=== PATIENT | female | born 1985 | race Caucasian/White ===

== ENCOUNTER → 2022-03-29 11:18 | Outpatient (CLI) | payer SELFPAY ==
--- NOTE | ~2022-03-29 | CT_ITS ---
EXAMINATION: CT abdomen pelvis w con INDICATION: Abdominal and pelvic pain TECHNIQUE: Computed tomographic images of the abdomen and pelvis were obtained after the administrati on of 100 cc of Omnipaque 350 intravenous contrast. The dose-length product (DLP) was 660.53 mGy-cm. Automated exposure control and iterative reconstruction technique were employed. COMPARISON: None available FINDINGS: Minimal dependent atelectasis is present in the lung bases. The heart size is normal. The l iver, spleen, pancreas, gallbladder, and adrenal glands are normal. There is a [address] one of the left kidney upper pole. The right kidney is unremarkable. No pathologically enlarged abdom inal or pelvic lymph nodes are identified. There is no free intraperitoneal gas or evidence of bowel obstruction. The appendix is normal. There is a 3.3 cm cyst of the right adnexa. Scattered soft tissu e calcifications posteriorly in the buttocks likely reflect injection sites. IMPRESSION: 1. No CT correlate for the patient's symptoms. Reviewed, dictated and finalized at location B.
--- NOTE | ~2022-03-29 | CT_ITS ---
This report was recreated [05/11/2022]. Original report was signed by [Chu Steen M.D. ] on [ ]. EXAMINATION: CT abdomen pelvis w con INDICATION: Abdominal and pelvic pain TECHNIQUE: Computed tomographic images of the abdomen and pelvis were obtained after the administrati on of 100 cc of Omnipaque 350 intravenous contrast. The dose-length product (DLP) was 660.53 mGy-cm. Automated exposure control and iterative reconstruction technique were employed. COMPARISON: None available FINDINGS: Minimal dependent atelectasis is present in the lung bases. The heart size is normal. The l iver, spleen, pancreas, gallbladder, and adrenal glands are normal. There is a [address] one of the left kidney upper pole. The right kidney is unremarkable. No pathologically enlarged abdom inal or pelvic lymph nodes are identified. There is no free intraperitoneal gas or evidence of bowel obstruction. The appendix is normal. There is a 3.3 cm cyst of the right adnexa. Scattered soft tissu e calcifications posteriorly in the buttocks likely reflect injection sites. IMPRESSION: 1. No CT correlate for the patient's symptoms. Reviewed, dictated and finalized at location B. Dictated By: Chu Steen MD 03/29/22 1414 Signed By: <Electronically signed by Chu Steen MD in OV> Reviewed, dictated and finalized at location B.
== END ==
PROVIDERS: PCP Physician Assistant Medical; Visit Provider Physician Assistant Medical
DX: R10.9 Unspecified abdominal pain (principal)
CPT/HCPCS: 99199; 74177; Q9967

== ENCOUNTER 2022-10-02 00:44 | Day surgery (SDC) | payer BC, SELFPAY ==
[2022-09-19 14:14] VITALS: BMI 23.0
--- NOTE | 2022-09-19 14:19 | PC.NURSE ---
Report to the Outpatient Waiting Room, entrance under the green pavilion located off [facility], at time 0930 on date 10/02/22. Planned Procedure Time: 1130. Time changes happen often and if your time is changed the preop area will call you the afternoon before. - You and your visitor will be asked to self-screen and do not enter if you have any COVID symptoms. - Only one visitor is requested with a max of two and NO children visitors are allowed at this time. - The patient visitor may be requested to leave or wait in car when not with patient due to distancing restrictions. - A mask is REQUIRED within the hospital. Patients may have clear liquids (water, carbonated beverages, clear teas, apple juice) until 3 hours prior to surgery with a maximum of 20 ounces. - No food from midnight until time of surgery Take the following medications with a SIP of water the morning of surgery: TOPIRAMATE Medications to discontinue per physician: VITAMINS/SUPPLEMENTS Date to take last dose: 09/28/22 Please no make-up, nail american, hairspray, perfume, deodorant, or body powder the day of surgery. No jewelry (including any body piercings) or valuables the day of surgery, leave them at home. Please take a shower or bath the night before, or the morning of, surgery with an antibacterial soap. Wear comfortable, loose fitting clothing. - Jewelry must be removed prior to entering the operating room. Rings and piercings that are not removed may be cut off. - The hospital will not accept responsibility for valuables. - Please leave all valuables, including medications, at home the day of surgery. If you are going home after surgery, a licensed pedicab driver must drive you home. - NO public transportation without another adult if you receive anesthesia. - We recommend that an adult stay with you for 24 hours following discharge. - We also recommend that you do not drive, make important decision, drink alcoholic beverages, or take any drugs that were not prescribed by your health care provider for at least 24 hours after your discharge time. Follow any additional instructions given to you from your surgeon. If you or anyone in your household have experienced Covid symptoms in the past week, please notify your surgeon or the nurse liaison at the phone number below for possible testing. Telephone instructions given to PT - CHAPIN SHI and asked if any additional questions and then verbalized understanding. Patient advised to call surgeon office or pre surgery nurse liaison [phone] if any additional questions.
--- NOTE | 2022-10-01 11:28 | PM.IMHP ---
H&P: HPI History of Present Illness Date/Time: 10/01/22 11:28 Chief Complaint: cervical dysplasia Narrative: Deisy is a 36yo G0, who presents for scheduled surgery. She had an ASCUS/HPV + pap. Colpo was performed and showed CHEKO 2 at 3 o'clock Review of Systems Constitutional: Constitutional: Denies chills, Denies fever(s) and Denies headache(s) Eyes: Eyes: Denies change in vision ENT: Denies dizziness and Denies headache(s) Cardiovascular: Cardiovascular: Denies chest pain and Denies dyspnea Respiratory: Respiratory: Denies cough and Denies dyspnea Gastrointestinal: Gastrointestinal: Denies abdominal pain and Denies change in stool character Genitourinary: Genitourinary: Denies abnormal menses, Denies pelvic pain, Denies vaginal discharge, Denies vaginal odor and Denies vaginal pruritus Neurologic: Denies dizziness and Denies headache(s) Psychiatric: Psychiatric: Denies anxiety and Denies depression [facility] Past Medical History Medical History (Updated 10/01/22 @ 11:29 by Aaliyah Adrian MD) Encounter for colonoscopy in patient with family history of colon polyps Migraines Pap smear abnormality of vagina with ASC-US Social History Social History Smoking status: Never smoker Alcohol intake: current Drinks per week: 1 Alcohol use details: 2 TIMES/MONTH Substance use: never Substance use type: does not use Living arrangements: alone 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 Gender identity (if verbalized by the patient): Female Sexual Orientation (if Verbalized by the Patient): Straight or Heterosexual Spiritual care concerns: No Meds Home Medications and Allergies Home Medications Medication Instructions Recorded Confirmed Type norethindrone acetate 1 mg-ethinyl 1 tablet PO DAILY #63 tabs 05/31/22 09/19/22 Rx estradiol 20 mcg tablet (Microgestin) sumatriptan succinate 6 mg/0.5 mL 6 mg subcut ONCE 05/31/22 09/19/22 History subcutaneous needle-free injector amitriptyline 10 mg tablet 20 mg PO HS 09/19/22 09/19/22 History dicyclomine 20 mg tablet 20 mg PO QID PRN Abdominal 09/19/22 09/19/22 History Discomfort eletriptan 40 mg tablet 40 mg PO ONCE PRN Migraine Headache 09/19/22 09/19/22 History multivitamin 1 tablet PO DAILY 09/19/22 09/19/22 History topiramate 100 mg tablet 100 mg PO BID 09/19/22 09/19/22 History Allergies Allergy/AdvReac Type Severity Reaction Status Date / Time Sulfa (Sulfonamide Allergy Severe Flushing Verified 09/19/22 14:10 Antibiotics) venom-honey bee Allergy Severe Numbness Verified 09/19/22 14:10 Exam Const: General: cooperative, healthy appearing, comfortable and no acute distress Orientation/consciousness: patient oriented x3 Resp: Effort & Inspection: normal respiratory effort Cardio: Rate: regular rate GI: Inspection: normal to inspection GI Palp: No abdominal tenderness and Yes Soft to palpation : Other: deferred to OR Skin: General skin exam: normal color Neuro: General: patient oriented x3 Extrem: General: normal to inspection Psych: Appearance: grossly normal Affect: normal affect Attitude: cooperative Assessment and Plan Assessment and plan (1) CHEKO II (cervical intraepithelial neoplasia II): Code(s): N87.1 - Moderate cervical dysplasia Status: Acute Plan - Proceed with LEEP, ECC, and top hat - Risks and benefits explained in detail
--- NOTE | 2022-10-02 08:13 | WPDHPUPDATE1 ---
History and Physical Update Update Date/Time: 10/02/22 08:13 History and Physical has been reviewed, including an updated exam of the patient. There are NO changes in the patient's condition. Risks, benefits, and alternatives have been discussed and questions answered. Patient agrees to proceed with procedure.
--- NOTE | 2022-10-02 09:55 | WPDANESEPPF ---
Anes - Initial Pre Proc Eval Procedure: Operation Date: 10/02/22 11:30 Proposed Procedures p Loop Electrical Excision Procedure - Aaliyah Adrian MD Date/Time: 10/02/22 09:55 Surgeon: Aaliyah Adrian MD Pre Op Diagnosis: cervical dysplasia Patient Data Age: 36 Gender: F Height: 1.7 m Weight: 66.7 kg Allergies Allergy/AdvReac Type Severity Reaction Status Date / Time Sulfa (Sulfonamide Allergy Severe Flushing Verified 09/19/22 14:10 Antibiotics) venom-honey bee Allergy Severe Numbness Verified 09/19/22 14:10 Home Medications Medication Instructions Recorded Confirmed Type norethindrone acetate 1 mg-ethinyl 1 tablet PO DAILY #63 tabs 05/31/22 09/19/22 Rx estradiol 20 mcg tablet (Microgestin) sumatriptan succinate 6 mg/0.5 mL 6 mg subcut ONCE 05/31/22 09/19/22 History subcutaneous needle-free injector amitriptyline 10 mg tablet 20 mg PO HS 09/19/22 09/19/22 History dicyclomine 20 mg tablet 20 mg PO QID PRN Abdominal 09/19/22 09/19/22 History Discomfort eletriptan 40 mg tablet 40 mg PO ONCE PRN Migraine Headache 09/19/22 09/19/22 History multivitamin 1 tablet PO DAILY 09/19/22 09/19/22 History topiramate 100 mg tablet 100 mg PO BID 09/19/22 09/19/22 History Patient hx anesthesia problems: none Family hx anesthesia problems: none Results Review: All pre-operative results and documents have been reviewed as part of the pre-operative evaluation. 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 Gender identity (if verbalized by the patient): Female Sexual Orientation (if Verbalized by the Patient): Straight or Heterosexual Spiritual care concerns: No Anes - Eval Final PreProcedure Day of Procedure 10/02/22 09:55 Patient weight: normal Heart: regular rate and rhythm Lungs: clear to auscultation Airway: Mallampati scale class II Neurological: alert and oriented Last oral intake: >/= 8 hours ASA classification: I Emergent: no Anesthetic plan: proceed Anesthesia type and monitoring: general GIVS and standard monitoring Results Review: All pre-operative results and documents have been reviewed as part of the pre-operative evaluation. Informed Consent: The patient's anesthetic plan and its attendant risks and benefits were discussed with the patient/family/POA. Questions were solicited and answers provided to the satisfaction of the patient/family/POA.
[2022-10-02] MEDS: ACETAMINOPHEN 500 MG TABLET 1000 MG PO (10:20)
[2022-10-02] MEDS: LACTATED RINGERS 1,000 ML 30 ML IV CONT (10:20)
[2022-10-02 10:25] VITALS: BP 132/86; PULSE 85; RESP 14; TEMP 37.1; O2SAT 100
[2022-10-02] MEDS: BUPIVACAINE/EPINEPHRINE 0.5% 10 ML VIAL 30 ML INFILTRATE (11:04)
[2022-10-02] MEDS: KETOROLAC 30 MG/ML VIAL (*BKC) IV PUSH (11:06)
--- NOTE | 2022-10-02 11:22 | W.PM.PROC2 ---
Procedure Note - Detailed Date of Procedure 10/02/22 Pre-op Diagnosis cervical dysplasia Post-op Diagnosis Same Procedure Performed LEEP, top hat, ECC Surgeon Aaliyah Adrian MD Anesthesia MAC Findings No uptake circumferentially around cervical os. Good hemostasis at end of case. Description of Procedure Deisy was taken to the operating room where she was placed under MAC sedation without complications. She was then prepped and draped in the normal fashion in the dorsal lithotomy position with her legs in low Sanjay stirrups. A time-out was performed and no preoperative antibiotics were indicated. A coated speculum attached to suction was then placed within the vagina, where the cervix was easily identified. The cervix was then injected with 0.25% Marcaine with epinephrine (7cc were used). Lugol?s solution was then applied to the cervix. No uptake was noted as above. The LEEP was then obtained in a single swipe from the patient?s left to right. The LEEP was removed and a silk stitch was placed at 12:00 p.m. to orient the tissue for pathology. A top-hat was then obtained in the same manner. A silk stitch was also placed at 12:00 p.m. An ECC was then collected. The LEEP bed was then cauterized using the roller ball. Monsel?s solution was then placed in the LEEP bed. Good hemostasis was noted. Sponge, lap, instrument, and needle counts were correct at the end of the procedure. The patient was awoken from anesthesia and taken to recovery in a stable condition with plans of same-day discharge home. Estimated Blood Loss 5 Pathology Yes (Leep and top hate (each with stitch placed @ 12o'clock), ECC) Complications No immediate complications Condition Stable Disposition Same day [facility] Billing Surgery - Charge Forward: Surgery Billing
[2022-10-02 11:24] VITALS: BP 101/72; PULSE 89; RESP 16; O2SAT 100
[2022-10-02 11:50] VITALS: BP 108/72; PULSE 70; RESP 16; O2SAT 100
[2022-10-02 12:15] VITALS: BP 107/68; PULSE 65; RESP 14
== END 2022-10-02 12:25 | disposition home or self-care (01) ==
PROVIDERS: PCP Physician Assistant Medical; Visit Provider Obstetrics & Gynecology
PROC: 0UBC7ZZ Excision of Cervix, Via Natural or Artificial Opening (ICD-10-PCS; CPT 57522; principal; 2022-10-02 11:30)
DX: N87.1 Moderate cervical dysplasia (principal)
CPT/HCPCS: 57522; 88305; 88307; A9270; J1100; J1885; J2250; J2405; J2704; J3010; J7120

== ENCOUNTER 2025-06-04 10:03 | Outpatient (CLI) | payer OTHER, SELFPAY ==
--- OUTSIDE RECORDS SUMMARY | 2025-06-04 11:20 | XMS_ITS | Clinical Summary ---
Author Organization [facility] Address [address] [place] [address] Care Team Providers Care Shellfish Shucker Name Role Phone Odalis Estes PA-C Primary Care Provider [phone] Allergies Active Allergy Reactions Criticality Noted Date Comments Amoxicillin-Pot Clavulanate Hives Medium 10/20/2022 Bee Venom Anaphylaxis High 07/24/2019 Sulfa Antibiotics Nausea and Vomiting,Other (see comment) Medium 04/04/2018 Red rash, flushing of the skin Medications topiramate (TOPAMAX) 100 MG tablet topiramate 100 mg tablet TAKE 1 TABLET BY MOUTH TWICE DAILY 10/28/19 22 Active SUMAtriptan Succinate (IMITREX) 6 MG/0.5ML Solution Auto-injector Active MICROGESTIN 1-20 MG-MCG tablet Take 1 tablet by mouth daily. 08/29/20 22 Active Multiple Vitamins-Iron (DAILY-AUGUSTINA/IRON/B ETA-CAROTENE) Tab Take 1 tablet by mouth daily. Active Magnesium Gluconate 500 MG Tab Active EPINEPHrine 0.3 MG/0.3ML injection EpiPen 2-Fazal 0.3 mg/0.3 mL injection, auto-injector Active eletriptan (RELPAX) 40 MG tablet 08/04/20 22 Active Diclofenac Potassium,Migraine , (CAMBIA) 50 MG Pack Cambia 50 mg oral powder packet Take by oral route. Active vitamin B-12 (CYANOCOBALAMIN) 100 MCG tablet Activ e Cholecalciferol 50 MCG (1999 UT) Tab Ac tive butalbital-acetami nophen-caffeine (ESGIC) 50-325-40 MG tablet Take 1 tablet by mouth 3 (three) times daily as needed. 01/11/20 12 Active Ascorbic Acid 100 MG Tab Take 100 mg by mouth daily. Active amitriptyline (ELAVIL) 10 MG tablet amitriptyline 10 mg tablet TAKE 2 TABLETS BY MOUTH EVERY DAY AT BEDTIME 10/28/19 Active albuterol sulfate HFA 108 (90 Base) MCG/ACT inhalerIndications :Acute cough Inhale 2 puffs into the lungs every 6 (six) hours as needed for Wheezing. 18 g 09/06/20 22 Active Additional Information Patient not taking.Reported on 10/27/2024 IBSRELA 50 MG Tab Take 1 tablet by mouth 2 (two) times daily. 10/11/19 Active fluticasone propionate (FLONASE) 50 MCG/ACT nasal sprayIndications:A cute recurrent maxillary sinusitis 1 spray by Nasal route daily. 11.1 mL 10/18/19 Active Additional Information Patient not taking.Reported on 10/27/2024 dicyclomine (BENTYL) 20 MG tablet Take 20 mg by mouth every 6 (six) hours. Active cyclobenzaprine (FLEXERIL) 10 MG tablet Take 1 tablet (10 mg total) by mouth. Active ondansetron (ZOFRAN-ODT) 8 MG disintegrating tablet Take 1 tablet (8 mg total) by mouth. Active azithromycin (ZITHROMAX) 250 MG tabletIndications: Non-recurrent acute serous otitis media of both ears Take 2 tablets by mouth on day one then 1 daily for four days. 6 tablet 08/07/20 Active Additional Information Patient not taking.Reported on 10/27/2024 methylPREDNISolone , FAZAL, (MEDROL DOSEPAK) 4 MG tabletIndications: Non-recurrent acute serous otitis media of both ears 6 TABLETS ON DAY ONE, 5 TABLETS DAY TWO, 4 TABLETS DAY THREE, 3 TABLETS DAY FOUR, 2 TABLETS DAY FIVE, AND 1 TABLET DAY SIX 1 each 08/07/20 Active Additional Information Patient not taking.Reported on 10/27/2024 albuterol sulfate HFA 108 (90 Base) MCG/ACT inhalerIndications :Influenza A,Wheezing Inhale 2 puffs into the lungs every 6 (six) hours as needed for Wheezing. 18 g 10/27/19 25 Active Active Problems Problem Noted Date Diagnosed Date Generalized anxiety disorder 07/12/2018 Cough 12/17/2012 Nasal congestion 12/12/2012 Acute bronchitis 09/04/2012 Sore throat 09/04/2012 Migraine without aura and wi thout status migrainosus, not intractable 07/05/2012 Resolved Problems Problem Noted Date Diagnosed Date Resolved Date Pre-employment health screening examination 07/18/2013 08/13/2023 Encounter for preventive health examination 04/22/2012 08/13/2023 Immunizations Immunization Administration Dates Next Due Tdap (Generic) 08/06/2016 Family History Relation Status Comments Father Alive Mother Alive Social History Tobacco Use Types Packs/Day Years Used Date Smoking Tobacco: Never Smokeless Tobacco: Never Tobacco Cessation:Counseling Given: No Alcohol Use Standard Drinks/Week Comments Yes 0 (1 standard drink = 0.6 oz pur e alcohol) twice a month PHQ-2 Answer Date Recorded Patient Health Questionnaire-2 Score 0 10/27/2024 Comments No Sex and Gender Information Value Date Recorded Sex Assigned at Not on file Legal Sex Female 5:53 PM CDT Gender Identity Not on file Sexual Orientation Not on file Last Filed Vital Signs Vital Sign Reading Time Taken Comments Blood Pressure 130/84 10/27/2024 11:33 AM DIGITAL CONTENT MARKETING MANAGER Pulse 114 10/27/2024 11:33 AM DIGITAL CONTENT MARKETING MANAGER Temperature 36.9 C (98.4 F) 10/27/2024 11:33 AM DIGITAL CONTENT MARKETING MANAGER Respiratory Rate 20 10/27/2024 11:33 AM DIGITAL CONTENT MARKETING MANAGER Oxygen Saturation 100% 10/27/2024 11:33 AM DIGITAL CONTENT MARKETING MANAGER Inhaled Oxygen Concentration - - Weight 74.8 kg (165 lb) 10/27/2024 11:33 AM DIGITAL CONTENT MARKETING MANAGER Height 170.2 cm (5' 7) 10/27/2024 11:33 AM DIGITAL CONTENT MARKETING MANAGER Body Mass Index 25.84 10/27/2024 11:33 AM DIGITAL CONTENT MARKETING MANAGER Plan of Treatment Health Maintenance Due Date Last Done Comments Cervical Cancer Screening Pa p Smear (Age 30 to 64) Every 3 Years 1986 Annual Physical 1989 Hepatitis C 2004 Hepatitis B Vaccines (1 of 3 - 19+ 3-dose series) 2005 HPV Vaccines (1 - 3-dose SCD M series) 2013 Cervical Cancer Screening Pa p with HPV Testing (Age 30 to 64) Every 5 Years 2016 Cervical Cancer Screening with HPV 2016 COVID-19 Vaccine (2023-2 5 season) 2025 DTaP, Tdap and Td Vaccines ( 2 - Td or Tdap) 08/06/2026 08/06/2016 PHQ-2 (Physician [place]) Completed 10/27/2024 Meningococcal B Vaccine Aged Out No l onger eligible based on patient's age to complete this topic Meningococcal Vaccine Aged Out No tru graciela eligible based on patient's age to complete this topic Pneumococcal Vaccine: Pediat rics (0 to 5 Years) and At-Risk Patients (6 to 49 Years) Aged Out No longer eligi ble based on patient's age to complete this topic RSV Immunizations Under 20 Months Aged Out No longer eligible based on patient's age to complete this topic Insurance Care Teams Shellfish Shucker Relationship Specialty Start Date End Date Odalis Estes PA-C [address] [place] [place], [place] [address] [place] [address] PCP - General 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
--- NOTE | 2025-06-17 13:04 | P.SLEEP_ITS ---
Sleep Study - Home Unattended Date of Study: 06/04/25 Ordering Provider: Odalis Estes PA-C Interpreting Provider: Aissatou Rm, DO Home Sleep Study Type: Watch PAT Height: 1.7 m Weight: 74.843 kg Body Mass Index: 25.8 Neck Circumference (inches): 13 [place]: 7 Reason for Sleep Study Excessive daytime sleepiness Sleep History The patient is a 39-year-old female that sleep study ordered by her primary care for evaluation of sleep apnea. She admits to excessive daytime sleepiness. She snoring loudly. She denies interruptions in breathing while asleep. She denies choking or gasping at night. She denies having trouble breathing on her back. She does have morning headaches. She denies having a dry or sore mouth / throat in the morning. She denies nocturnal heartburn. She denies nocturia. She does have difficulty falling asleep. She denies having difficulty staying asleep. She denies having difficulty returning to sleep if she wakes up throughout the night. She does use hypnotic or sedatives. She denies feeling anxious about sleep. She does feel tired or sleepy during the day. She does feel tired in the morning. She does have the urge to fall asleep during the day. She does fe el drowsy while driving. She denies sleep paralysis, cataplexy and hypnagogic/ hypnopompic hallucinations. She denies clenching or grinding her teeth. She denies kicking or jerking her legs excessively. She denies having restless feeling her legs. She goes to bed at 8:00 p.m. on work days and 10:00 p.m. on her days. It takes her 30 minutes to fall asleep on work days and 40 minutes on her days off. She gets and 1/2 hours of sleep on work days and 8 hours on her days off. Her sleep is still little more restorative on her days. She denies taking any planned naps. She denies dream enactment behavior. She denies sleep walking. She consumes 1-2 cups of caffeinated beverage per day. She consumes 2 alcoholic beverages 1-2 nights per week. She denies tobacco use. He exercises 3-4 nights per week. 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 Migraines Surgical History Surgical History H/O LEEP Social History Social History Social History: 04/28/25 very confident with medical forms Smoking status: Never smoker Alcohol intake: current Drinks per week: 1 Alcohol use details: 2 TIMES/MONTH Substance use: never Substance use type: does not use Lack of Transportation: No Lack of Food: Never True Current Housing: I Have Housing Concerned About Future Housing: No Difficulty Paying Gas/Electric Bills: No Difficulty Paying for Meds: No Currently Unemployed: No Education: Bachelor's Degree Difficulty w/ Childcare or Family Care: No Living arrangements: alone Occupation/Education: occupation 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 Gender identity (if verbalized by the patient): Female Sexual Orientation (if Verbalized by the Patient): Straight or Heterosexual Spiritual care concerns: No Medications Home Medications ?Medication ?Instructions ?Recorded ?Confirmed ?Type sumatriptan succinate 6 mg/0.5 mL 6 mg subcut ONCE 04/1405/04/25 History subcutaneous needle-free injector amitriptyline 10 mg tablet 20 mg PO DAILY 09/19/2208/18 History eletriptan 40 mg tablet 40 mg PO ONCE PRN Migraine H eadache 09/19/22 05/04/25 History multivitamin 1 tablet PO DAILY 09/19/22 0 05/04/25 History hydrocortisone acetate 25 mg 25 mg RECTAL DAILY #12 ea 01/08/25 05/04/25 Rx rectal suppository (Anusol-HC) norethindrone acetate 1 mg-ethinyl 1 tablet PO DAILY # 84 tabs 01/08/25 05/04/25 Rx estradiol 20 mcg tablet (Microgestin) epinephrine 0.3 mg/0.3 mL 0.3 mg (0.3 mL) IM ONCE #2 e a 05/13/25 Rx injection, auto-injector (EpiPen 2-Fazal) montelukast 10 mg tablet 10 mg PO DAILY #30 tabs 05/25 Rx (Singulair) Sleep Procedure The sleep study was completed using [employer] a technically adequate device with seven channels: peripheral arterial tone, actigraphy, body position, snore, respiratory movement, pulse oximetry, sleep staging, and heart rate. Prior to using the device, the patient received verbal and written instructions for its application and was provided with the help desk phone number for additional telephonic instruction with 24-hour availability of qualified personnel to answer questions. The study was scored using CMS guidelines. Sleep Architecture The total recording time is 9 hrs, 21 min. The total sleep time is 8 hrs, 7 min. Sleep latency is 18 minutes. REM latency is 37 minutes. The patient had 11 episodes of waking. Sleep architecture shows 13.3% deep sleep, 71.2% light sleep, and (as % Total Sleep Time) showed NREM (Light 71.2%; Deep 13.3%), and a 15.5% stage REM. The patient spent 53.2% of total sleep time in the supine position. Sleep efficiency was 86.81. Respiratory Analysis The overall AHI (pAHI 4%:) is 1.5. The overall AHI (pAHI 3%:) is 3.1. The central AHI is 0.0. The AHI was 2.7 in NREM and 6.6 in REM sleep. The AHI was 2.0 in Supine and 4.5 in Non-supine sleep. Percent of Korey Panchal respirations is 0.0. Oximetry Data The oxygen desaturation index (ARUN 4%:) is 1.0. The mean saturation is 97%, and the lowest saturation is 91%. Time spent with saturation < 88% is 0.0 minutes. Snoring Profile Snoring average intensity is 41 dB. The patient snored above 45 decibels for 17.0 minutes, 3.5% of sleep time. Cardiac Profile The average pulse rate is 64 beats per minutes. The lowest pulse rate is 43 bpm. The highest pulse rate reported is 113 bpm. Atrial fibrillation was not detected. Premature beats occur <0.1 per minute. Assessment and Plan Assessment and Plan (1) Sleep disturbances: Code(s): G47.9 - Sleep disorder, unspecified Status: Acute Assessment and Plan: The patient had an overall AHI of 1.5 with desaturation down to 91%. This is not consistent with sleep-disordered breathing. If there is further concern for a sleep disorder, I recommend that the patient have a split study with the use of a hypnotic to ensure we obtain enough sleep data. Data The data obtained during this sleep study is adequate for interpretation. Certification This sleep study has been reviewed by a board certified sleep medicine physician.
[2025-06-18 07:10] VITALS: BMI 25.8
== END 2025-06-05 10:08 | disposition home or self-care (01) ==
LOC: ANHCSM 10:07
PROVIDERS: PCP Physician Assistant Medical; Visit Provider Physician Assistant Medical
DX: R40.0 Somnolence (principal); G47.9 Sleep disorder, unspecified
CPT/HCPCS: 95800